=== PATIENT | male | born 1940 | race Caucasian/White ===

== ENCOUNTER 2016-06-13 23:06 | Emergency (ER) | payer OTHER ==
[~2016-06-13] VITALS: Ht 172.7 cm; Wt 80.0 kg
[~2016-06-13 23:06] MED LIST: AMLO10TA2 PO; ATOR40TA16 PO; BUSP5TAB PO; CALTCHW CHEW; CHRO1CAP3; FERR1TAB36 PO; FISHCAP4 PO; FURO1TAB60 PO; GABA1TAB; METF500T PO; OMEP20TA PO; PYRI1TAB5; TEST-55; VENTAER INH; VITA100021 SL; XARE20TA PO; ZINC10LO4; [UNRECOGNIZED DRUG - CODE]
[2016-06-13 23:09] VITALS: BP 129/78; PULSE 78; RESP 16; TEMP 99; O2SAT 93
[2016-06-14 00:46] VITALS: BP 119/84; PULSE 84; RESP 16; TEMP 99.4; O2SAT 93
[2016-06-14] MEDS ORDERED: VENTAER INH (00:59)
[2016-06-14] MEDS ORDERED: CLON1TAB PO (00:59)
[2016-06-14] MEDS ORDERED: FLUT1SPR5 EACH NARE (00:59)
[2016-06-14] MEDS ORDERED: DONE1TAB90 PO (00:59)
[2016-06-14] MEDS ORDERED: RAMI1.252 PO (00:59)
[2016-06-14] MEDS ORDERED: TAMS0.4C4 PO (00:59)
[2016-06-14] MEDS ORDERED: TRAM50TA PO (00:59)
[2016-06-14] MEDS ORDERED: ACETAMINOPHEN 325 MG TAB PO ONE (01:15)
[2016-06-14] MEDS ORDERED: SODIUM CHLORIDE 0.9% FLUSH 5 ML FLUSH IVF PRN (01:15)
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
[2016-06-14 01:45] VITALS: BP 123/72; PULSE 83; RESP 16; O2SAT 95
[2016-06-14 02:08] LABS: AUTOMATED NEUTROPHIL # 4.6 TH/MM3 (1.8-7.7); BASOPHIL % 0.7 % (0.0-2.0); EOSINOPHIL # 0.1 TH/MM3 (0-0.4); EOSINOPHIL % 1.5 % (0.0-4.0); HEMATOCRIT 42.9 % (39.0-51.0); HEMO FLAGS DIFF FINAL; LYMPH % 16.3 % (9.0-44.0); LYMPHOCYTE # 1.1 TH/MM3 (1.0-4.8); MEAN CELL VOLUME 93.1 FL (80.0-100.0); MEAN CORPUSCULAR HEMOGLOBIN 31.4 PG (27.0-34.0); MEAN CORPUSCULAR HGB CONC 33.7 % (32.0-36.0); MONO % 10.1 % (0.0-8.0); NEUT % 71.4 % (16.0-70.0); PLATELET COUNT 152 TH/MM3 (150-450); RED BLOOD COUNT 4.61 MIL/MM3 (4.50-5.90); RED CELL DISTRIBUTION WIDTH 13.8 % (11.6-17.2); WHITE BLOOD COUNT 6.5 TH/MM3 (4.0-11.0)
--- NOTE | 2016-06-14 02:21 | RADRPT ---
EXAM DATE/TIME: 06/14/2016 01:50 [facility] COMPARISON: No previous studies available for comparison. INDICATIONS : Cough for four days. MEDICAL HISTORY : Chronic obstructive pulmonary disease. Hypertension Diabetes mellitus type II. SURGICAL HISTORY : None. ENCOUNTER: Initial ACUITY: 4 - 6 days PAIN SCORE: 0/10 LOCATION: Bilateral chest FINDINGS: The cardiac silhouette is enlarged in transverse diameter. The lungs are free of acute parenchymal op acity. No effusions are identified. The aortic knob is prominent with tortuosity of the descending th oracic aorta. CONCLUSION: 1. Cardiomegaly. No acute pulmonary disease. Christoph Castillo MD on June 14, 2016 at 2:20 Board Certified Radiologist. This report was verified electronically.
[2016-06-14 02:30] LABS: BICARBONATE 28.4 MEQ/L (21.0-32.0); POTASSIUM 4.2 MEQ/L (3.5-5.1)
[2016-06-14] MEDS: RESP: ALBUTEROL 2.5 MG/IPRATROPIUM 0.5 MG NEB (SCH) INH (03:03)
[2016-06-14 03:07] VITALS: O2SAT 94
[2016-06-14] MEDS ORDERED: SODIUM CHLOR 0.9% 1000 ML INJ 1,000 ML IV ONE (04:00)
[2016-06-14 04:39] VITALS: BP_SYST 103; BP_SYST 104; BP_SYST 120; BP_DIAS 61; BP_DIAS 68; BP_DIAS 79; RESP 16
[2016-08-11] MEDS ORDERED: WARF-23 PO (10:45)
== END 2016-06-14 04:57 | disposition home or self-care (01) ==
LOC: NEPC 23:06
DX: J06.9 Acute upper respiratory infection, unspecified (principal); Z72.0 Tobacco use
CPT/HCPCS: 71010; 80048; 83605; 85025; 87040; 87804; 94640; 94664; 99284; J7030

== ENCOUNTER → 2016-06-24 | Day surgery (SDC) | payer OTHER ==
[~2016-06-24] MED LIST changes: +CLON1TAB PO; +DONE1TAB90 PO; +FLUT1SPR5 EACH NARE; +PROPOFOL 200 MG/20 ML AMP IV ONE; +RAMI1.252 PO; +SODIUM CHLORIDE 0.9% INJ 10 ML ONE; +TAMS0.4C4 PO; +TRAM50TA PO; +TRIAMCINOLONE ACETONIDE 40 MG/ML VIAL ONE; +WARF-23 PO; -XARE20TA PO
== END | disposition home or self-care (01) ==
LOC: ESDC 10:29
PROVIDERS: ATTEND Anesthesiology Pain Medicine
DX: M47.817 Spondylosis without myelopathy or radiculopathy, lumbosacral region (principal)
CPT/HCPCS: 62323; J3301; 77003

== ENCOUNTER 2017-07-15 17:15 | Observation (INO) | payer OTHER ==
[~2017-07-15] VITALS: Ht 172.7 cm; Wt 78.9 kg
[~2017-07-15 17:15] MED LIST changes: -DONE1TAB90 PO; +DONE5TAB8 PO; -GABA1TAB; +GABA1TAB PO; -OMEP20TA PO; +OMEP20TA93 PO; -PROPOFOL 200 MG/20 ML AMP IV ONE; -PYRI1TAB5; -SODIUM CHLORIDE 0.9% INJ 10 ML ONE; -TRIAMCINOLONE ACETONIDE 40 MG/ML VIAL ONE; +VITA100T10; -ZINC10LO4
[2017-07-15 18:03] VITALS: BP 112/66; PULSE 88; RESP 16; TEMP 97.7; O2SAT 89; O2SAT 98
[2017-07-15] MEDS ORDERED: SODIUM CHLORID 0.9% 500 ML INJ 500 ML IV ONE ×2 (18:15→20:15)
[2017-07-15] MEDS ORDERED: SODIUM CHLORIDE 0.9% FLUSH 10 ML FLUSH IVF PRN (18:15)
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
--- NOTE | 2017-07-15 19:22 | PD ---
Physical Exam Date Seen by Provider: Jul 15, 2017 Time Seen by Provider: 19:21 Narrative Accepted in transfer of care from Dr. Lucas General: Well-developed well-nourished elderly male in no acute distress or respiratory distress sitting at edge of stretcher with legs dangling with nurse at bedside voicing no concerns or complaints GCS 15 systolic blood pressure 99 mmHg Data Data Last Documented VS Vital Signs Date Time Temp Pulse Resp B/P (MAP) Pulse Ox O2 Delivery O2 Flow Rate FiO2 07/15/17 19:24 95 Room Air 07/15/17 19:00 18 07/15/17 18:03 97.7 88 112/66 (81) Orders Orders Electrocardiogram (07/15/17 18:15) B-Type Natriuretic Peptide (07/15/17 18:15) Ckmb (Isoenzyme) Profile (07/15/17 18:15) Complete Blood Count With Diff (07/15/17 18:15) Comprehensive Metabolic Panel (07/15/17 18:15) Magnesium (Mg) (07/15/17 18:15) Prothrombin Time / Inr (Pt) (07/15/17 18:15) Act Partial Throm Time (Ptt) (07/15/17 18:15) Troponin I (07/15/17 18:15) Lipase (07/15/17 18:15) Ecg Monitoring (07/15/17 18:15) Iv Access Insert/Monitor (07/15/17 18:15) Oximetry (07/15/17 18:15) Oxygen Administration (07/15/17 18:15) Sodium Chloride 0.9% Flush (Ns Flush) (07/15/17 18:15) Chest, Single Ap (07/15/17 ) Sodium Chlorid 0.9% 500 Ml Inj (Ns 500 M (07/15/17 18:15) Urinalysis - C+S If Indicated (07/15/17 19:16) Sodium Chlorid 0.9% 500 Ml Inj (Ns 500 M (07/15/17 20:15) Admit Order (Ed Use Only) (07/15/17 ) Dye Reel Operator Helper / Telemetry KUSHAL.Q8H (07/15/17 20:49) Activity Oob With Assistance (07/15/17 20:49) Notify Dr: Other (07/15/17 20:49) Place In Observation (3/21/18 ) Vital Signs (Adult) Q4H (07/15/17 20:49) Activity Oob With Assistance (07/15/17 20:49) Dye Reel Operator Helper / Telemetry .CONTINUOUS (07/15/17 20:49) Diet 1800 [place] Cons Carb (07/16/17 Breakfast) Sodium Chlor 0.9% 1000 Ml Inj (Ns 1000 M (07/15/17 21:00) Sodium Chloride 0.9% Flush (Ns Flush) (07/15/17 21:00) Sodium Chloride 0.9% Flush (Ns Flush) (07/15/17 21:00) Basic Metabolic Panel (Bmp) (07/16/17 06:00) Complete Blood Count With Diff (07/16/17 06:00) Pt Request For Service (07/15/17 20:49) Case Management Consult (07/15/17 20:49) Naloxone Inj (Narcan Inj) (07/15/17 21:00) Labs Laboratory Tests Test 07/15/17 19:13 07/15/17 19:40 White Blood Count 8.4 TH/MM3 Red Blood Count 4.34 MIL/MM3 Hemoglobin 13.8 GM/DL Hematocrit 41.2 % Mean Corpuscular Volume 94.7 FL Mean Corpuscular Hemoglobin 31.7 PG Mean Corpuscular Hemoglobin Concent 33.5 % Red Cell Distribution Width 13.0 % Platelet Count 198 TH/MM3 Mean Platelet Volume 7.6 FL Neutrophils (%) (Auto) 67.2 % Lymphocytes (%) (Auto) 23.1 % Monocytes (%) (Auto) 6.3 % Eosinophils (%) (Auto) 1.6 % Basophils (%) (Auto) 1.8 % Neutrophils # (Auto) 5.7 TH/MM3 Lymphocytes # (Auto) 1.9 TH/MM3 Monocytes # (Auto) 0.5 TH/MM3 Eosinophils # (Auto) 0.1 TH/MM3 Basophils # (Auto) 0.2 TH/MM3 CBC Comment DIFF FINAL Differential Comment Prothrombin Time 25.1 SEC Prothromb Time International Ratio 2.5 RATIO Activated Partial Thromboplast Time 32.9 SEC Blood Urea Nitrogen 28 MG/DL Creatinine 1.60 MG/DL Random Glucose 98 MG/DL Total Protein 6.5 GM/DL Albumin 3.2 GM/DL Calcium Level 8.2 MG/DL Magnesium Level 2.3 MG/DL Alkaline Phosphatase 61 U/L Aspartate Amino Transf (AST/SGOT) 9 U/L Alanine Aminotransferase (ALT/SGPT) 15 U/L Total Bilirubin 0.4 MG/DL Sodium Level 138 MEQ/L Potassium Level 4.2 MEQ/L Chloride Level 102 MEQ/L Carbon Dioxide Level 28.6 MEQ/L Anion Gap 7 MEQ/L Estimat Glomerular Filtration Rate 42 ML/MIN Total Creatine Kinase 76 U/L Troponin I LESS THAN 0.02 NG/ML B-Type Natriuretic Peptide 114 PG/ML Lipase 110 U/L Urine Color YELLOW Urine Turbidity CLEAR Urine pH 5.0 Urine Specific [place] GREATER/EQUAL 1.030 Urine Protein NEG mg/dL Urine Glucose (UA) NEG mg/dL Urine Ketones NEG mg/dL Urine Occult Blood TRACE Urine Nitrite NEG Urine Bilirubin NEG Urine Urobilinogen 0.2 MG/DL Urine Leukocyte Esterase NEG Urine RBC 0-3 /hpf Urine WBC 0-2 /hpf Urine Squamous Epithelial Cells 0-5 /hpf Urine Renal Epithelial Cells 0-5 /hpf Microscopic Urinalysis Comment CULT NOT INDICATED MDM Medical Record Reviewed: Yes Supervised Visit with NIKHIL: No Interpretation(s) EKG: Atrial fibrillation with controlled ventricular rate of [address] elevation or injury pattern change noted left axis deviation Last Impressions Chest X-Ray 07/15/17 0000 Signed Impressions: Service Date/Time: Saturday, July 15, 2017 18:37 - CONCLUSION: 1. Cardiomegaly. Minimal basal atelectasis or scarring. No effusion or pneumothorax. Jagdish Kang MD CBC & BMP Diagram 07/15/17 19:13 Total Protein 6.5, Albumin 3.2 L, Calcium Level 8.2 L, Magnesium Level 2.3, Alkaline Phosphatase 61, Aspartate Amino Transf (AST/SGOT) 9 L, Alanine Aminotransferase (ALT/SGPT) 15, Total Bilirubin 0.4 Vital Signs Date Time Temp Pulse Resp B/P (MAP) Pulse Ox O2 Delivery O2 Flow Rate FiO2 07/15/17 19:24 95 Room Air 07/15/17 19:24 93 Room Air 07/15/17 19:00 18 95 Room Air 07/15/17 18:03 97.7 88 16 112/66 (35) 98 Differential Diagnosis Accepted in transfer of care from Dr. Lucas; please refer to his dictation Narrative Course Accepted in transfer of care from Dr. Lucas for follow up of labs and disposition Patient with elevated specific gravity on urinalysis EKG is atrial fibrillation with controlled ventricular rate actually slow ventricular rate of 55 lab values are grossly within normal range otherwise; patient's primary care 30 told him to discontinue his antihypertensive medications; patient's case has been discussed with on-call medicine physician Dr Cuello with plan for observation admission. Patient administering slow boluses of normal saline has received a 500 cc bolus and an additional 500 cc bolus blood pressures running 97 systolic. Cardiac enzymes are not elevated. Patient is aware of plan for observation admission and is agreeable to this. Physician Communication Physician Communication discussed with Dr Cuello --OBS Diagnosis Primary Impression: Generalized weakness Additional Impressions: Hypotension Qualified Codes: I95.9 - Hypotension, unspecified Hypotension due to medication Admitting Information Admitting Physician Requests: Observation Apple Boogie MD Jul 15, 2017 19:21
[2017-07-15 19:24] VITALS: O2SAT 95
[2017-07-15 19:24] LABS: AUTOMATED NEUTROPHIL # 5.7 TH/MM3 (1.8-7.7); BASOPHIL # 0.2 TH/MM3 (0-0.2); BASOPHIL % 1.8 % (0.0-2.0); EOSINOPHIL # 0.1 TH/MM3 (0-0.4); EOSINOPHIL % 1.6 % (0.0-4.0); HEMATOCRIT 41.2 % (39.0-51.0); HEMOGLOBIN 13.8 GM/DL (13.0-17.0); LYMPH % 23.1 % (9.0-44.0); LYMPHOCYTE # 1.9 TH/MM3 (1.0-4.8); MEAN CELL VOLUME 94.7 FL (80.0-100.0); MEAN CORPUSCULAR HEMOGLOBIN 31.7 PG (27.0-34.0); MEAN CORPUSCULAR HGB CONC 33.5 % (32.0-36.0); MEAN PLATELET VOLUME 7.6 FL (7.0-11.0); MONO % 6.3 % (0.0-8.0); MONOCYTE # 0.5 TH/MM3 (0-0.9); NEUT % 67.2 % (16.0-70.0); PLATELET COUNT 198 TH/MM3 (150-450); RED BLOOD COUNT 4.34 MIL/MM3 (4.50-5.90); WHITE BLOOD COUNT 8.4 TH/MM3 (4.0-11.0)
[2017-07-15 19:32] LABS: CHLORIDE 102 MEQ/L (98-107); SODIUM (NA) 138 MEQ/L (136-145)
[2017-07-15 19:35] LABS: CALCIUM 8.2 MG/DL (8.5-10.1)
[2017-07-15 19:36] LABS: ALBUMIN 3.2 GM/DL (3.4-5.0); BICARBONATE 28.6 MEQ/L (21.0-32.0); BLOOD UREA NITROGEN 28 MG/DL (7-18); GLUCOSE,RANDOM 98 MG/DL (74-106); MAGNESIUM 2.3 MG/DL (1.5-2.5)
[2017-07-15 19:37] LABS: INTERNATIONAL NORMALIZED RATIO 2.5 RATIO; PROTHROMBIN TIME - PATIENT 25.1 SEC (9.8-11.6)
[2017-07-15] MEDS ORDERED: TRAZ100T10 PO (19:37)
[2017-07-15 19:39] LABS: ALT (GPT) 15 U/L (12-78); AST (GOT) 9 U/L (15-37); GLOMERULAR FILTRATION RATE 42 ML/MIN (>89)
[2017-07-15 19:40] LABS: TOTAL BILIRUBIN ADULT 0.4 MG/DL (0.2-1.0); TOTAL PROTEIN 6.5 GM/DL (6.4-8.2)
[2017-07-15 19:42] LABS: ALKALINE PHOSPHATASE 61 U/L (45-117)
[2017-07-15 19:44] LABS: TROPONIN I LESS THAN 0.02 NG/ML (0.02-0.05)
--- NOTE | 2017-07-15 19:46 | RADRPT ---
EXAM DATE/TIME: 07/15/2017 18:37 [facility] COMPARISON: No previous studies available for comparison. INDICATIONS : Weakness, shortness of breath for 24 hours MEDICAL HISTORY : Chronic obstructive pulmonary disease. Hypertension Diabetes mellitus type II SURGICAL HISTORY : None. ENCOUNTER: Initial ACUITY: 1 day PAIN SCORE: 0/10 LOCATION: Bilateral chest FINDINGS: A single view of the chest demonstrates minimal basilar atelectasis or scarring. No effusion. No pneu mothorax. Heart size enlarged. CONCLUSION: 1. Cardiomegaly. Minimal basal atelectasis or scarring. No effusion or pneumothorax. Jagdish Kang MD on July 15, 2017 at 19:43 Board Certified Radiologist. This report was verified electronically.
[2017-07-15 19:50] LABS: BILIRUBIN, URINE NEG (NEG); BLOOD, URINE TRACE (NEG); GLUCOSE,URINE NEG (NEG); KETONE, URINE NEG (NEG); NITRITE,URINE NEG (NEG); URINE COLOR YELLOW (YELLW/STRAW); URINE LEUKOCYTE ESTERASE NEG (NEG)
[2017-07-15 19:55] LABS: RBC, URINE 0-3 /hpf (0-3); RENAL EPITHELIAL CELLS 0-5 /hpf; SQUAMOUS EPITHELIAL CELL URINE 0-5 /hpf (0-5); WBC, URINE 0-2 /hpf (0-5)
[2017-07-15] MEDS ORDERED: SODIUM CHLORIDE 0.9% FLUSH 10 ML FLUSH IV FLUSH PRN (21:00)
[2017-07-15] MEDS: INSULIN ASPART SUPPLEMENTAL SCALE SQ SCH (21:00)
[2017-07-15] MEDS ORDERED: GLUCAGON 1 MG/ML VIAL OTHER PRN (21:00)
[2017-07-15] MEDS ORDERED: NALOXONE HCL 0.4 MG/ML AMP IV PUSH PRN (21:00)
[2017-07-15] MEDS ORDERED: DEXTROSE 50% IN WATER 50 ML VIAL(D50) IV PUSH PRN (21:00)
[2017-07-15] MEDS: SODIUM CHLOR 0.9% 1000 ML INJ 1,000 ML IV SCH (21:37)
[2017-07-15] MEDS: SODIUM CHLORIDE 0.9% FLUSH 10 ML FLUSH IV FLUSH SCH (21:38)
--- NOTE | 2017-07-15 21:43 | EKG ---
Date Performed: 07/15/2017 Time Performed: 18:34:29 PTAGE: 76 years EKG: ATRIAL FIBRILLATION WITH SLOW VENTRICULAR RESPONSE MARKED LEFT AXIS DEVIATION NONSPECIFIC T -WAVE ABNORMALITY ABNORMAL ECG Cannot compare EKGs due to prior artifact. PREVIOUS TRACING : 01/03/2015 08.32 DOCTOR: Boyd Freitas Interpretating Date/Time 07/15/2017 21:42:17
[2017-07-15 21:44] VITALS: BP 92/64; PULSE 64; RESP 18
[2017-07-15 23:22] VITALS: BP 97/60; PULSE 71; RESP 16; O2SAT 95
[2017-07-16] VITALS (14 sets, daily range): BP systolic 89–140; BP diastolic 60–88; PULSE 58–98; RESP 16–33; TEMP 97.6–98.2; O2SAT 89–98
[2017-07-16 05:19] LABS: AUTOMATED NEUTROPHIL # 4.5 TH/MM3 (1.8-7.7); BASOPHIL % 0.4 % (0.0-2.0); EOSINOPHIL # 0.2 TH/MM3 (0-0.4); EOSINOPHIL % 2.5 % (0.0-4.0); HEMATOCRIT 39.5 % (39.0-51.0); HEMOGLOBIN 12.9 GM/DL (13.0-17.0); LYMPH % 26.5 % (9.0-44.0); LYMPHOCYTE # 1.8 TH/MM3 (1.0-4.8); MEAN CELL VOLUME 94.8 FL (80.0-100.0); MEAN CORPUSCULAR HGB CONC 32.7 % (32.0-36.0); MEAN PLATELET VOLUME 7.5 FL (7.0-11.0); MONO % 6.2 % (0.0-8.0); MONOCYTE # 0.4 TH/MM3 (0-0.9); NEUT % 64.4 % (16.0-70.0); PLATELET COUNT 177 TH/MM3 (150-450); RED BLOOD COUNT 4.17 MIL/MM3 (4.50-5.90); RED CELL DISTRIBUTION WIDTH 12.9 % (11.6-17.2); WHITE BLOOD COUNT 6.9 TH/MM3 (4.0-11.0)
[2017-07-16 05:36] LABS: CALCIUM 7.7 MG/DL (8.5-10.1)
[2017-07-16 05:37] LABS: BICARBONATE 26.4 MEQ/L (21.0-32.0)
[2017-07-16 05:40] LABS: CREATININE 1.2 MG/DL (0.60-1.30)
[2017-07-16] MEDS: SODIUM CHLOR 0.9% 1000 ML INJ 1,000 ML IV SCH ×2 (06:13→16:42)
[2017-07-16] MEDS: INSULIN ASPART SUPPLEMENTAL SCALE SQ SCH ×4 (08:00→21:00)
[2017-07-16] MEDS: SODIUM CHLORIDE 0.9% FLUSH 10 ML FLUSH IV FLUSH SCH ×2 (08:23→21:00)
[2017-07-16] MEDS ORDERED: GABA300C5 PO (14:39)
[2017-07-16] MEDS ORDERED: WARFARIN SOD 5 MG TAB PO SCH (16:00)
[2017-07-16] MEDS ORDERED: ALBUTEROL SULFATE 90 MCG/ACT HFA 8 GM INHALER INH PRN ×2 (16:00)
[2017-07-16] MEDS ORDERED: clonazePAM 1 MG TAB PO PRN (16:00)
[2017-07-16] MEDS ORDERED: traMADol HCL 50 MG TAB PO PRN (16:00)
--- NOTE | 2017-07-16 16:04 | HHI.HP ---
[facility] Fidel Campbell MD Admission Diagnosis generalized weakness; hypotension Diagnoses: Chief Complaint: generalized weakness Travel History International Travel<30 Days: No Contact w/Intl Traveler <30 Da: No Traveled to Known Affected Are: No History of Present Illness 76-year-old male with PMH of HTN, Afib on coumadin, BPH, neuropathy, came to the ED for furhter evaluation, He complains of weakness for the past several days, he also felt dizzy. Low blood pressure also is reported. He saw his primary care provider today who discontinued his antihypertensives and advised him to arrive to the ER for evaluation. He denies abdominal pain chest pain shortness of breath fever chills nausea vomiting. He does report difficulty getting in and out of his car due to leg weakness. He reports falls over the past couple weeks due to leg weakness. No head trauma or LOC. He did received bolus of IVF in the ED and he says she feels improved. Review of Systems Except as stated in HPI: all other systems reviewed are Neg Past Family Social History Past Medical History h/o bladder ca with surgery, BPH, HTN, HLD Past Surgical History bladder surgery x2 in 2000 Prostatectomy Hemorrhoidal surgery Reported Medications Last Impressions Chest X-Ray 07/15/17 0000 Signed Impressions: Service Date/Time: Saturday, July 15, 2017 18:37 - CONCLUSION: 1. Cardiomegaly. Minimal basal atelectasis or scarring. No effusion or pneumothorax. Jagdish Kang MD Allergies: Coded Allergies: monosodium glutamate (Verified Allergy, Severe, TROUBLE BREATHING, CHEST PAIN, 04/17/17) Family History Mom [place] at 86 Father 74 of heart problems Social History 2 ppd x 54 years quit 2 month ago Occ EtOH No illicit drug use Physical Exam Vital Signs Vital Signs Date Time Temp Pulse Resp B/P (MAP) Pulse Ox O2 Delivery O2 Flow Rate FiO2 07/16/17 12:00 98.1 74 18 96/60 (72) 96 07/16/17 09:11 96 Nasal Cannula 2.00 07/16/17 09:00 84 19 96 07/16/17 08:52 96 Nasal Cannula 2.00 07/16/17 08:00 97.8 82 33 109/75 (86) 89 07/16/17 08:00 62 07/16/17 05:00 103/77 (86) 07/16/17 04:00 97.6 59 16 89/61 (70) 95 07/16/17 02:00 59 07/16/17 01:15 98.0 58 16 111/69 (83) 92 07/16/17 01:11 07/15/17 23:22 71 16 97/60 (72) 95 Room Air 07/15/17 21:44 64 18 92/64 (73) 07/15/17 19:24 95 Room Air 07/15/17 19:24 93 Room Air 07/15/17 19:00 18 95 Room Air 07/15/17 18:03 97.7 88 16 112/66 (81) 98 Physical Exam GENERAL: This is a well-nourished, well-developed patient, in no apparent distress. SKIN: No rashes, ecchymoses or lesions. Cool and dry. HEAD: Atraumatic. Normocephalic. No temporal or scalp tenderness. EYES: Pupils equal round and reactive. Extraocular motions intact. No scleral icterus. No injection or drainage. ENT: Nose without bleeding, purulent drainage or septal hematoma. Throat without erythema, tonsillar hypertrophy or exudate. Uvula midline. Airway patent. NECK: Trachea midline. No JVD or lymphadenopathy. Supple, nontender, no meningeal signs. CARDIOVASCULAR: Regular rate and rhythm without murmurs, gallops, or rubs. RESPIRATORY: Clear to auscultation. Breath sounds equal bilaterally. No wheezes , rales, or rhonchi. GASTROINTESTINAL: Abdomen soft, non-tender, nondistended. No hepato-splenomegaly , or palpable masses. No guarding. MUSCULOSKELETAL: Extremities without clubbing, cyanosis, or edema. No joint tenderness, effusion, or edema noted. No calf tenderness. Negative Homans sign bilaterally. NEUROLOGICAL: Awake and alert. Cranial nerves II through XII intact. Motor and sensory grossly within normal limits. Five out of 5 muscle strength in all muscle groups. Normal speech. Laboratory Laboratory Tests Test 07/15/17 19:13 07/15/17 19:40 07/16/17 05:07 White Blood Count 8.4 6.9 Red Blood Count 4.34 4.17 Hemoglobin 13.8 12.9 Hematocrit 41.2 39.5 Mean Corpuscular Volume 94.7 94.8 Mean Corpuscular Hemoglobin 31.7 31.0 Mean Corpuscular Hemoglobin Concent 33.5 32.7 Red Cell Distribution Width 13.0 12.9 Platelet Count 198 177 Mean Platelet Volume 7.6 7.5 Neutrophils (%) (Auto) 67.2 64.4 Lymphocytes (%) (Auto) 23.1 26.5 Monocytes (%) (Auto) 6.3 6.2 Eosinophils (%) (Auto) 1.6 2.5 Basophils (%) (Auto) 1.8 0.4 Neutrophils # (Auto) 5.7 4.5 Lymphocytes # (Auto) 1.9 1.8 Monocytes # (Auto) 0.5 0.4 Eosinophils # (Auto) 0.1 0.2 Basophils # (Auto) 0.2 0.0 CBC Comment DIFF FINAL DIFF FINAL Differential Comment Prothrombin Time 25.1 Prothromb Time International Ratio 2.5 Activated Partial Thromboplast Time 32.9 Blood Urea Nitrogen 28 23 Creatinine 1.60 1.20 Random Glucose 98 92 Total Protein 6.5 Albumin 3.2 Calcium Level 8.2 7.7 Magnesium Level 2.3 Alkaline Phosphatase 61 Aspartate Amino Transf (AST/SGOT) 9 Alanine Aminotransferase (ALT/SGPT) 15 Total Bilirubin 0.4 Sodium Level 138 142 Potassium Level 4.2 4.0 Chloride Level 102 108 Carbon Dioxide Level 28.6 26.4 Anion Gap 7 8 Estimat Glomerular Filtration Rate 42 59 Total Creatine Kinase 76 Troponin I LESS THAN 0.02 B-Type Natriuretic Peptide 114 Lipase 110 Urine Color YELLOW Urine Turbidity CLEAR Urine pH 5.0 Urine Specific [place] GREATER/EQUAL 1.030 Urine Protein NEG Urine Glucose (UA) NEG Urine Ketones NEG Urine Occult Blood TRACE Urine Nitrite NEG Urine Bilirubin NEG Urine Urobilinogen 0.2 Urine Leukocyte Esterase NEG Urine RBC 0-3 Urine WBC 0-2 Urine Squamous Epithelial Cells 0-5 Urine Renal Epithelial Cells 0-5 Microscopic Urinalysis Comment CULT NOT INDICATED Result Diagram: 07/16/17 0507 07/16/17 0507 Imaging Last Impressions Chest X-Ray 07/15/17 0000 Signed Impressions: Service Date/Time: Saturday, July 15, 2017 18:37 - CONCLUSION: 1. Cardiomegaly. Minimal basal atelectasis or scarring. No effusion or pneumothorax. Jagdish Kang MD Caprini VTE Risk Assessment Caprini VTE Risk Assessment: Mod/High Risk (score >= 2) Caprini Risk Assessment Model Point Value = 1 Point Value = 2 Point Value = 3 Point Value = 5 Age 41-60 Minor surgery BMI > 25 kg/m2 Swollen legs Varicose veins or History of unexplained or recurrent spontaneous Oral contraceptives or hormone replacement Sepsis (< 1 month) Serious lung disease, including pneumonia (< 1 month) Abnormal pulmonary function Acute myocardial infarction Congestive heart failure (< 1 month) History of inflammatory bowel disease Medical patient at bed rest Age 61-74 Arthroscopic surgery Major open surgery (> 45 min) Laparoscopic surgery (> 45 min) Malignancy Confined to bed (> 72 hours) Immobilizing plaster cast Central venous access Age >= 75 History of VTE Family history of VTE Factor V Leiden Prothrombin [id number] Lupus anticoagulant Anticardiolipin antibodies Elevated serum homocysteine Heparin-induced thrombocytopenia Other congenital or acquired thrombophilia Stroke (< 1 month) Elective arthroplasty Hip, pelvis, or leg fracture Acute spinal cord injury (< 1 month) Prophylaxis Regimen Total Risk Factor Score Risk Level Prophylaxis Regimen 0-1 Low Early ambulation 2 Moderate Order ONE of the following: *Sequential Compression Device (SCD) *Heparin 5000 units SQ BID 3-4 Higher Order ONE of the following medications: *Heparin 5000 units SQ TID *Enoxaparin/Lovenox 40 mg SQ daily (WT < 150 kg, CrCl > 30 mL/min) *Enoxaparin/Lovenox 30 mg SQ daily (WT < 150 kg, CrCl > 10-29 mL/min) *Enoxaparin/Lovenox 30 mg SQ BID (WT < 150 kg, CrCl > 30 mL/min) AND/OR *Sequential Compression Device (SCD) 5 or more Highest Order ONE of the following medications: *Heparin 5000 units SQ TID (Preferred with Epidurals) *Enoxaparin/Lovenox 40 mg SQ daily (WT < 150 kg, CrCl > 30 mL/min) *Enoxaparin/Lovenox 30 mg SQ daily (WT < 150 kg, CrCl > 10-29 mL/min) *Enoxaparin/Lovenox 30 mg SQ BID (WT < 150 kg, CrCl > 30 mL/min) AND *Sequential Compression Device (SCD) Assessment and Plan Assessment and Plan Generalized weakness Hypertension however noted hypotensive on admission Afib rate controlled on anticoagulation with coumadin , INR therapeutic, monitor HLD Monitor on telemetry On IVF Restart home meds as appropriate Hold BP meds if SBP< 110 POss DC home tomorrow if improves Yen Bernal MD Jul 16, 2017 16:04
[2017-07-16] MEDS ORDERED: WARF-22 PO (16:49)
[2017-07-16] MEDS ORDERED: FLUTICASONE PROPIONATE 50 MCG/ACT 16 GM NASAL SPRAY EACH NARE SCH (21:00)
[2017-07-16] MEDS ORDERED: GABAPENTIN 300 MG CAP PO SCH (21:00)
[2017-07-16] MEDS ORDERED: traZODone HCL 100 MG TAB PO SCH (21:00)
[2017-07-16] MEDS ORDERED: ATORVASTATIN 40 MG TAB PO SCH (21:00)
[2017-07-16] MEDS ORDERED: TAMSULOSIN HCL 0.4 MG CAP PO SCH (21:00)
[2017-07-17] VITALS: BP 108/64; PULSE 120; RESP 16; TEMP 98.4; O2SAT 96
[2017-07-17] MEDS: SODIUM CHLOR 0.9% 1000 ML INJ 1,000 ML IV SCH ×2 (02:54→05:25)
[2017-07-17 04:00] VITALS: BP 117/75; PULSE 70; RESP 14; TEMP 98.4; O2SAT 95
[2017-07-17 05:25] LABS: INTERNATIONAL NORMALIZED RATIO 1.7 RATIO; PROTHROMBIN TIME - PATIENT 16.7 SEC (9.8-11.6)
[2017-07-17 08:00] VITALS: BP 122/77; PULSE 70; PULSE 90; RESP 20; TEMP 96.8; O2SAT 95
[2017-07-17] MEDS ORDERED: GABAPENTIN 300 MG CAP PO SCH (09:00)
[2017-07-17] MEDS ORDERED: DONEPEZIL HCL 5 MG TAB PO SCH (09:00)
[2017-07-17] MEDS ORDERED: RAMIPRIL 1.25 MG CAP PO SCH (09:00)
[2017-07-17] MEDS ORDERED: PANTOPRAZOLE SOD 20 MG DELAYED RELEASE TAB PO SCH (09:00)
[2017-07-17] MEDS ORDERED: NON-FORMULARY DRUG (Fish Oil-Cholecalciferol (Fish Oil + D3) 1 CAP) PO SCH (09:00)
[2017-07-17] MEDS: SODIUM CHLORIDE 0.9% FLUSH 10 ML FLUSH IV FLUSH SCH (10:53)
[2017-07-17 11:23] LABS: CALCIUM 8.3 MG/DL (8.5-10.1)
[2017-07-17 11:24] LABS: BICARBONATE 30.3 MEQ/L (21.0-32.0)
[2017-07-17 11:37] LABS: CREATININE 1.1 MG/DL (0.60-1.30)
[2017-07-17 12:00] VITALS: BP 109/67; PULSE 76; RESP 20; TEMP 98; O2SAT 95
[2017-07-17] MEDS: INSULIN ASPART SUPPLEMENTAL SCALE SQ SCH (12:07)
--- NOTE | 2017-07-17 12:21 | HHI.DS ---
Discharge Summary Admission Date Jul 15, 2017 at 20:50 Discharge Date: Jul 17, 2017 Admitting Diagnosis generalized weakness; hypotension (1) Hypotension due to medication ICD Code: I95.2 - Hypotension due to drugs Status: Acute (2) Hypotension ICD Code: I95.9 - Hypotension, unspecified Status: Acute (3) Generalized weakness ICD Code: R53.1 - Weakness Status: Acute (4) Coronary artery disease ICD Code: I25.10 - Coronary artery disease Status: Acute (5) Hypersensitivity ICD Code: T78.40XA - Allergy, unspecified, initial encounter Status: Acute (6) Hypersensitivity ICD Code: T78.40XA - Allergy, unspecified, initial encounter Status: Acute Procedures None Brief History - From Admission 76-year-old male with PMH of HTN, Afib on coumadin, BPH, neuropathy, came to the ED for furhter evaluation, He complains of weakness for the past several days, he also felt dizzy. Low blood pressure also is reported. He saw his primary care provider today who discontinued his antihypertensives and advised him to arrive to the ER for evaluation. He denies abdominal pain chest pain shortness of breath fever chills nausea vomiting. He does report difficulty getting in and out of his car due to leg weakness. He reports falls over the past couple weeks due to leg weakness. No head trauma or LOC. He did received bolus of IVF in the ED and he says she feels improved. CBC/BMP: 07/16/17 0507 07/17/17 1039 Significant Findings Laboratory Tests Test 07/15/17 19:13 07/15/17 19:40 07/16/17 05:07 07/17/17 04:27 Red Blood Count 4.34 MIL/MM3 (4.50-5.90) 4.17 MIL/MM3 (4.50-5.90) Prothrombin Time 25.1 SEC (9.8-11.6) 16.7 SEC (9.8-11.6) Activated Partial Thromboplast Time 32.9 SEC (24.3-30.1) Blood Urea Nitrogen 28 MG/DL (7-18) 23 MG/DL (7-18) Creatinine 1.60 MG/DL (0.60-1.30) Albumin 3.2 GM/DL (3.4-5.0) Calcium Level 8.2 MG/DL (8.5-10.1) 7.7 MG/DL (8.5-10.1) Aspartate Amino Transf (AST/SGOT) 9 U/L (15-37) Estimat Glomerular Filtration Rate 42 ML/MIN (>89) 59 ML/MIN (>89) Troponin I LESS THAN 0.02 NG/ML B-Type Natriuretic Peptide 114 PG/ML (0-100) Hemoglobin 12.9 GM/DL (13.0-17.0) Chloride Level 108 MEQ/L (98-107) Test 07/17/17 10:39 Random Glucose 127 MG/DL (74-106) Calcium Level 8.3 MG/DL (8.5-10.1) Sodium Level 146 MEQ/L (136-145) Chloride Level 109 MEQ/L (98-107) Estimat Glomerular Filtration Rate 65 ML/MIN (>89) Imaging Last Impressions Chest X-Ray 07/15/17 0000 Signed Impressions: Service Date/Time: Saturday, July 15, 2017 18:37 - CONCLUSION: 1. Cardiomegaly. Minimal basal atelectasis or scarring. No effusion or pneumothorax. Jagdish Kang MD PE at Discharge GENERAL: This is a well-nourished, well-developed patient, in no apparent distress. CARDIOVASCULAR: Regular rate and rhythm without murmurs, gallops, or rubs. RESPIRATORY: Clear to auscultation. Breath sounds equal bilaterally. No wheezes , rales, or rhonchi. GASTROINTESTINAL: Abdomen soft, non-tender, nondistended. No hepato-splenomegaly , or palpable masses. No guarding. MUSCULOSKELETAL: Extremities without clubbing, cyanosis, or edema. No joint tenderness, effusion, or edema noted. No calf tenderness. Negative Homans sign bilaterally. NEUROLOGICAL: Awake and alert. Cranial nerves II through XII intact. Motor and sensory grossly within normal limits. Five out of 5 muscle strength in all muscle groups. Normal speech. Pt update on day of discharge Patient in nad. At the marginof the bed. Improved. Discussed with physical therapy patient is PT at home. Patient feels much better today he is able to eat no nausea vomiting or diarrhea or constipation. He was able to ambulate lightheadedness. No weakness in his legs. Says he has a upcoming MRI of the back in 2 days. Feels comfortable to go home. Blood pressure is better controlled. Hospital Course Generalized weakness Hypertension however noted hypotensive on admission Afib rate controlled on anticoagulation with coumadin , INR therapeutic, monitor HLD Monitor on telemetry On IVF Restart home meds as appropriate Hold BP meds if SBP< 110 Patient is ambulating without any problems has a cane at home PT nurses to check . Discharged home with home health in stable condition to follow-up with PCP and consultants as outpatient. Patient has MRI of his back scheduled in 2 days. He is very compliant with medications and also follow-up appointments. Blood pressure is better controlled. Pt Condition on Discharge: Stable Discharge Disposition: Disch w/ Home Health Serv Discharge Time: > 30 minutes Discharge Instructions Follow up Referrals: PCP Follow-up - 2-3 Days Continued Medications: Albuterol 18 GM Inh (Ventolin Hfa 18 GM Inh) 90 Mcg/Act Aer 1 PUFF INH Q4H PRN for SHORTNESS OF BREATH, #1 INHALER 0 Refills Albuterol 18 GM Inh (Ventolin Hfa 18 GM Inh) 90 Mcg/Act Aer 2 PUFF INH Q4-6H PRN for SHORTNESS OF BREATH, #1 INHALER 0 Refills Atorvastatin (Atorvastatin) 40 Mg Tab 40 MG PO HS for Cholesterol Management, #30 TAB 0 Refills Clonazepam (Clonazepam) 1 Mg Tab 1 MG PO TID PRN for ANXIETY, #90 TAB 0 Refills Cyanocobalamin (Vitamin B-12) Unknown Strength Subl Unknown Dose SL DAILY for Nutritional Supplement, TAB.SL 0 Refills Donepezil Hydrochloride (Donepezil Hydrochloride) 5 Mg Tab 1 TAB PO DAILY Fish Oil-Cholecalciferol (Fish Oil + D3) 1,200-1,000 Mg-Unit Cap 1 CAP PO DAILY for Nutritional Supplement, #30 CAP 0 Refills Fluticasone Nasal [place] (Flonase Nasal [place]) 50 Mcg/Act [place] 50 MCG EACH NARE BID for Allergies, #1 BOTTLE 0 Refills Gabapentin (Gabapentin) 300 Mg Cap 300 MG PO HS, #30 CAP 0 Refills Gabapentin ER (Horizant ER) 300 Mg [place] 600 MG PO DAILY Omeprazole (Omeprazole) 20 Mg Tab 20 MG PO DAILY, #30 TAB 0 Refills Pyridoxine (B6 Natural) 100 Mg Tab Ramipril (Ramipril) 1.25 Mg Cap 1.25 MG PO DAILY, #30 CAP 0 Refills Tamsulosin (Tamsulosin) 0.4 Mg Cap 0.4 MG PO HS for Manage Prostate Problems, #30 CAP 0 Refills Tramadol (Tramadol) 50 Mg Tab 50 MG PO Q6H PRN for PAIN, TAB 0 Refills Trazodone (Trazodone) 100 Mg Tablet 100 MG PO HS for Control Depression, #30 TAB 0 Refills Warfarin (Warfarin) 5 Mg Tab 5 MG PO DAILY for Blood Clot Prevention, #30 TAB 0 Refills Warfarin (Warfarin) 10 Mg Tab 10 MG PO THURSDAY for Blood Clot Prevention, #30 TAB 0 Refills Yen Bernal MD Jul 17, 2017 12:21
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
[2017-07-17] MEDS ORDERED: WARFARIN SOD 2.5 MG TAB PO ONE (16:00)
== END 2017-07-17 16:31 | disposition home or self-care (01) ==
LOC: PHED 17:15 → PHEDA 20:50 → PHICU 07-16 01:05 → PH3A 07-17 08:01
PROVIDERS: ADMIT Hospitalist; ATTEND Hospitalist
DX: I95.2 Hypotension due to drugs (principal); R53.1 Weakness; I25.10 Atherosclerotic heart disease of native coronary artery without angina pectoris; T78.40XA Allergy, unspecified, initial encounter; I10 Essential (primary) hypertension; I48.91 Unspecified atrial fibrillation; E78.5 Hyperlipidemia, unspecified; N40.0 Benign prostatic hyperplasia without lower urinary tract symptoms; Z79.01 Long term (current) use of anticoagulants; Z85.51 Personal history of malignant neoplasm of bladder; Z91.81 History of falling; Z82.49 Family history of ischemic heart disease and other diseases of the circulatory system
CPT/HCPCS: 71045; 80048; 80053; 81001; 82550; 82607; 82948; 83690; 83735; 83880; 84484; 85025; 85610; 85730; 93005; 96360; 96361; 97110; 97116; 97162; 99285; G0378; G8987; G8988; J7030; J7040

== ENCOUNTER → 2017-08-06 | Day surgery (SDC) | payer OTHER ==
[~2017-08-06] VITALS: Ht 172.7 cm; Wt 80.0 kg
[~2017-08-06] MED LIST changes: +*RESP: ALBUTEROL 2.5 MG/3 ML NEB (PRN) PERIprocedural Use ONLY NEB ONE; +ACETAMINOPHEN 1000 MG/100 ML 100 ML IV ONE; +ACETAMINOPHEN/HYDROcodone 325 MG/5 MG TAB PO PRN; -AMLO10TA2 PO; +BUPIVACAINE HCL PF 0.5% 30 ML VIAL ONE; -BUSP5TAB PO; -CALTCHW CHEW; +CEPH-460 PO; +CHLORHEXIDINE GLUCONATE 2 % 1 PACK (2 CLOTHS) TOPICAL PRN; -CHRO1CAP3; +DEXAMETHASONE SOD PHOS 4 MG/ML VIAL IV ONE; +DO NOT ADM ANY ANTICOAGULANT DRUGS PRN; +ENOX40P SQ; +FAMOTIDINE 20 MG/2 ML VIAL ONE; -FERR1TAB36 PO; -FURO1TAB60 PO; +GABA300C5 PO; +HYDR-3288 PO; +LACTATED RINGER'S 1000 ML INJ 1,000 ML IV ONE; +LACTATED RINGER'S 1000 ML IV PRN; +LIDOCAINE HCL 1% PF 5 ML SYRINGE OTHER ONE; +LIDOCAINE HCL 2% 50 ML VIAL ONE; +MEPERIDINE HCL 50 MG/ML VIAL IM PRN; -METF500T PO; +METOPROLOL TARTRATE 25 MG TAB PO PRN; +MIDAZOLAM HCL 2 MG/2 ML VIAL ONE; +PHENYLEPH/NS 1000 MCG/10 ML SYR IV ONE; +POVIDONE IODINE 5% (ANTISEPSIS KIT) 4 APPLICATIONS EACH NARE PRN; +PROPOFOL 200 MG/20 ML AMP IV ONE; +SODIUM CHLORID 0.9% 500 ML IV PRN; -TEST-55; +TRAZ100T10 PO; +TRIAMCINOLONE ACETONIDE 40 MG/ML VIAL ONE; +WARF-22 PO; -[UNRECOGNIZED DRUG - CODE]; +ceFAZolin 1,000 MG/NS 100 ML IV SCH; +ceFAZolin INJ 1,000 MG VIAL IV ONE; +ceFAZolin INJ 1,000 MG VIAL ONE; +ePHEDrine/NS 25 MG/5 ML SYRINGE IV ONE
[2017-08-06 09:42] LABS: AUTOMATED NEUTROPHIL # 3.4 TH/MM3 (1.8-7.7); BASOPHIL % 0.8 % (0.0-2.0); EOSINOPHIL # 0.2 TH/MM3 (0-0.4); EOSINOPHIL % 2.8 % (0.0-4.0); HEMATOCRIT 37.7 % (39.0-51.0); HEMOGLOBIN 13.1 GM/DL (13.0-17.0); LYMPH % 28.5 % (9.0-44.0); LYMPHOCYTE # 1.6 TH/MM3 (1.0-4.8); MEAN CELL VOLUME 93.7 FL (80.0-100.0); MEAN CORPUSCULAR HEMOGLOBIN 32.4 PG (27.0-34.0); MEAN CORPUSCULAR HGB CONC 34.6 % (32.0-36.0); MEAN PLATELET VOLUME 7.3 FL (7.0-11.0); MONO % 8.1 % (0.0-8.0); MONOCYTE # 0.5 TH/MM3 (0-0.9); NEUT % 59.8 % (16.0-70.0); PLATELET COUNT 220 TH/MM3 (150-450); RED BLOOD COUNT 4.03 MIL/MM3 (4.50-5.90); RED CELL DISTRIBUTION WIDTH 13.6 % (11.6-17.2); WHITE BLOOD COUNT 5.7 TH/MM3 (4.0-11.0)
--- NOTE | 2017-08-06 11:56 | MP ---
cc: Vazquez Chau MD DATE OF OPERATION: 08/06/2017 DATE OF PROCEDURE: 08/06/2017 PROCEDURE PERFORMED: 1. Right hand scar revision. 2. Right hand neuroma excision x 2. 3. Right hand deep foreign body removal x 2 and use of image intensifier. SURGEON: Vazquez Chau III, MD DESCRIPTION OF PROCEDURE: The patient was brought to the operating room and placed supine on the operating table. After the correct site and side of surgery were verified by members of each team in the room multiple times including the patient and myself and after adequate preoperative markings, preoperative written consent were verified by everyone, after a preoperative timeout was performed to everyone's satisfaction, and after adequate anesthesia had been achieved, the right upper extremity was prepped and draped in traditional sterile surgical fashion. A 50:50 mixture of 2% lidocaine and 0.5% plain Marcaine was infiltrated in the skin and subcutaneous tissue in the area of the planned wound. The patient and I had gone over preoperatively where the points of maximal tenderness were and these were clearly marked. The limb was exsanguinated using an Fady wrap and a highly placed well-padded axillary tourniquet was inflated to 200 mmHg for approximately 25 minutes. The existing U-shaped scar was then excised in its entirety. The volar flap was then elevated and a lot of hardened fibrous scar tissue was present between the head of the metacarpal and the flap of skin and this was sharply excised. Two large neuromas were identified exactly where the patient had indicated he was having pain. The proximal end of the nerve was cauterized and dropped into the palm. The skin was freed up dorsally as well. Using the mini C-arm, the foreign bodies were identified and dissected free from the surrounding tissue and passed off the field. Final x-rays confirmed this. There were no other anatomic abnormalities identified. The skin flaps were nice and loose around the metacarpal and I did not feel the need to decorticate the bone and shave it down. The axillary tourniquet was released. There was no active bleeding, just minimal oozing which was easily controlled with pressure and/or bipolar electrocautery. Thorough irrigation with a liter worth of saline was performed. The skin edges were all reapproximated using interrupted and running 4-0 nylon sutures. All the fingers became immediately soft, pink and warm, had brisk capillary refill less than 2 seconds. A bulky soft dressing was applied in the usual fashion. The patient was awakened from anesthesia and transported to the postanesthesia care unit awake and in stable condition at the end of the case. Sponge, needle and instrument counts were correct at the end of the case as reported by the nurses in the room. MD ALEXYS Mcclain/ZURI , 11:24 AM , 11:55 AM
[2017-08-06 12:35] VITALS: TEMP 97.5
[2017-08-06 13:33] VITALS: BP 125/76; PULSE 70; RESP 16; O2SAT 94
== END | disposition home or self-care (01) ==
LOC: PHSDC 08:19
PROVIDERS: ATTEND Orthopaedic Surgery Hand Surgery
DX: D36.12 Benign neoplasm of peripheral nerves and autonomic nervous system, upper limb, including shoulder (principal); S60.551S Superficial foreign body of right hand, sequela; I10 Essential (primary) hypertension; E78.5 Hyperlipidemia, unspecified; I48.91 Unspecified atrial fibrillation; Z79.01 Long term (current) use of anticoagulants; Z87.891 Personal history of nicotine dependence
CPT/HCPCS: 01810; 20525; 64782; 76000; 85025; 88304; J0131; J0690; J1100; J2250; J2370; J3010; J7120; J7613; 92950; J3301

== ENCOUNTER 2017-11-26 06:15 | Observation (INO) ==
--- NOTE | 2017-11-25 19:34 | MH ---
cc: Jordan Amaral Edward M MD Wierzbicki,Cameron Le MD, MD DATE OF ADMISSION: 11/26/2017 ADMITTING DIAGNOSIS: Lumbar spinal stenosis. HISTORY OF PRESENT ILLNESS: This is a 77-year-old male who presented to us for an evaluation of left buttock area pain radiating into the left anterior thigh to the knee for 2 years. He states he has chronic history of low back pain; however, the left thigh symptoms are what is bothering him the most. He states the back pain is on and off over a chronic period of time. He denies any paresthesias in the lower extremities. He states 4 weeks ago, he had an injection, which made his left leg go numb; however, this improved over the following 24-48 hours. He denies any right lower extremity symptoms. He has had about 4 epidural steroid injections per year, and he states they are helping, and then he had a piriformis injection, which did not help. He also has tried acupuncture, which did not help. He states if he is standing too long, his symptoms are worse. He states the left leg gives out on him and he is having to use a cane. He states he has had periods of incontinence of urine and was wearing Depends and at this point in time, he has more urgency and states that the incontinence is improved. He has done physical therapy for 3 weeks, which did not help him at all. He has a significant cardiac history and is on Coumadin for history of coronary artery disease, as well as atrial fibrillation. PAST MEDICAL HISTORY: Significant for anxiety and depression, back pain, COPD, diabetes, coronary artery disease, atrial fibrillation, hyperlipidemia, gastroesophageal reflux disease, hypertension, benign prostatic hypertrophy, amputation of the right third finger, tonsillectomy, bladder cancer in 2000, hernia repair, cervical spine surgery in 1991. CURRENT MEDICATIONS: 1. He is taking Albuterol sulfate 2.5/3 mL solution nebulized. 2. Anastrozole 1 mg. 3. Atorvastatin 40 mg. 4. Calcium 600 mg. 5. Chromium picolinate 1000 mcg. 6. Clonazepam 1 mg. 7. Clotrimazole/betamethasone 1%/0.5% cream. 8. Benazepril 10 mg. 9. Ferrous sulfate 325 mg. 10. Fish oil. This was placed on hold prior to surgical intervention. 11. Fluticasone 50 mcg nasal spray. 12. Gabapentin 300 mg. 13. Hydrocodone 7.5/325. 14. Magnesium 200 mg. 15. Multivitamin. 16. Tamsulosin 0.4 mg. 17. Trazodone 100 mg. 18. Vitamin B12. 19. Vitamin B6. 20. Coumadin 5 mg. This was placed on hold prior to surgical intervention. 21. Lovenox injections. These were placed on hold for 48 hours prior to surgical intervention. ALLERGIES: MONOSODIUM GLUTAMATE, WHICH CAUSES SEVERE CHEST PAIN AND DIFFICULTY BREATHING. FAMILY HISTORY: His mother has a history of Alzheimer's disease and heart disease. She is at age 86. Father is at age 74. SOCIAL HISTORY: He drinks 0 to 2 drinks per day of alcohol. He is a former smoker. He does not use any illicit drugs. REVIEW OF SYSTEMS: CONSTITUTIONAL: He denies any fever or chills. EARS, NOSE AND THROAT: Positive for sinus drainage,. No pharyngitis. RESPIRATORY: Positive for shortness of breath and cough. CARDIOVASCULAR: Positive for palpitations. No chest pain. GASTROINTESTINAL: Positive for diarrhea. INTEGUMENTARY: No rashes. GENITOURINARY: Positive for urinary frequency and urgency. NEUROLOGIC: No difficulty with speech. ENDOCRINE: Positive for polyuria. No polydipsia. HEMATOLOGIC: Positive for easy bruising related to his anticoagulation. PHYSICAL EXAMINATION: HEENT: Head is normocephalic, atraumatic. NECK: Supple. No carotid bruits heard on auscultation. LUNGS: Clear to auscultation bilaterally. HEART: Irregular. No murmurs. ABDOMEN: Soft, positive bowel sounds. SKIN: No cyanosis or erythema. He does have some scattered areas of ecchymosis on his forearms. MUSCULOSKELETAL: He has 5/5 strength in the lower extremities. He ambulates with a cane. NEUROLOGIC: He is awake, alert, and oriented. Cranial nerves 2-12 are grossly intact. His speech is fluent. Comprehension is good. Sensation is intact to the lower extremities to light touch. Reflexes are diminished in the lower extremities. IMPRESSION: A 76-year-old male with a chronic history of low back pain and associated neurogenic claudication symptoms with unsteadiness in his legs. He has been using a cane to ambulate, and he has had a few falls where his legs gave out on him with walking. His main complaint is left buttock and hip area pain. At times, it radiates into the anterior thigh to the knee. He has undergone physical therapy and interventional pain management without much relief. He has been using tramadol about 8 pills a day, but even this does not control his pain adequately. MRI of the lumbar spine revealed moderate L2-L3 and severe L3-L4 spinal stenosis from facet ligamentum flavum hypertrophy with mild stenosis at L4/L5. There is multilevel degenerative disk disease with disk height collapse at all the disk spaces in the lumbosacral spine. The patient is requesting that we proceed with surgical intervention. PLAN: We have discussed an L2-L4 decompressive laminectomy to address the symptoms related to the spinal stenosis. We have discussed the procedure as well as the risks, benefits, alternatives, and recovery time in great detail with the patient. We have discussed the risks involved with surgery include, but not limited to bleeding, infection, muscle weakness, voice hoarseness, difficulty swallowing, heart attack, stroke, blood clots, scar tissue formation, among others. The patient's Coumadin was held 1 week prior to surgical intervention and he was bridged with Lovenox injections, which were stopped 48 hours prior to surgical intervention. He understands given his significant cardiac history that there is risk of stroke as well as heart attack, as well as other pulmonary and organ risk. We have received clearance from his windsmith, Dr. Damon and he was scheduled as a moderate risk for cardiovascular events, which he agreed to. YANNICK Tatum MD ESP/ZURI , 06:54 PM , 07:11 PM
[2017-11-26] MEDS ORDERED: Chlorhexidine Gluconate 2% 1 Pack (2 Cloths) TOPICAL SCH (06:45)
[2017-11-26] MEDS ORDERED: Metoprolol Tartrate 25 MG Tablet PO SCH (06:45)
[2017-11-26] MEDS ORDERED: Sodium Chlor 0.9% Inj 500 ML IV.SIG SCH (07:00)
[2017-11-26] MEDS ORDERED: Sod Chloride 0.9% Inj 1,000 ML IV.SIG SCH (07:00)
[2017-11-26] MEDS ORDERED: Vancomycin Inj 1 GM/200 ML PIGGYBACK IV.SIG SCH (07:00)
[2017-11-26] MEDS ORDERED: Thrombin Topical Soln 5,000 UNIT Vial TOPICAL ONE (07:01)
[2017-11-26] MEDS ORDERED: Bupivacaine/Epinephrine 0.5% Inj 50 ML Vial ONE (07:01)
[2017-11-26] MEDS ORDERED: Gelatin Size 100 Topical Foam ONE (07:30)
[2017-11-26] MEDS ORDERED: ceFAZolin 2 GM Premix Inj 2 GM/50 ML PIGGYBACK IV.SIG ONE (08:45)
[2017-11-26] MEDS ORDERED: Glycopyrrolate Inj 1 MG/5 ML Syringe IV.PUSH ONE (12:00)
[2017-11-26] MEDS ORDERED: Neostigmine Inj 5 MG/5 ML Syringe IV.PUSH ONE (12:00)
[2017-11-26] MEDS ORDERED: Phenylephrine/NS 1000 MCG/10ML Syringe IV.PUSH ONE (12:00)
[2017-11-26] MEDS ORDERED: Lidocaine PF 1% Inj 5 ML Syringe INFILTRATN ONE (12:00)
[2017-11-26] MEDS ORDERED: fentaNYL Citrate Inj 100 MCG/2 ML Ampul ONE (12:10)
[2017-11-26] MEDS ORDERED: Menthol 5.8 MG Lozenge BUCCAL PRN (12:25)
[2017-11-26] MEDS ORDERED: Morphine Inj 4 MG/ML Vial IV.PUSH PRN (12:25)
[2017-11-26] MEDS ORDERED: Aluminum/Magnesium/Simethacone Susp 30 ML UDC PO PRN (12:25)
[2017-11-26] MEDS ORDERED: Zolpidem Tartrate 5 MG Tablet PO PRN (12:25)
[2017-11-26] MEDS ORDERED: Bisacodyl 10 MG Supp RECTAL PRN (12:25)
--- NOTE | 2017-11-26 12:32 | P.OP ---
- Preoperative Diagnosis (1) Lumbar stenosis with neurogenic claudication (2) Lumbar facet arthropathy Date of procedure: 11/26/17 Procedure: Lumbar L2, L3 and L4 decompressive laminectomies with medial facetectomy; microsurgical technique Anesthesia: SHORTY Surgeon: Dheeraj Carvalho MD Flight Attendant Ramp: Aditi Romero Estimated blood loss (mL): 100 Operation and Findings: Following administration of general endotracheal anesthesia, patient received Ancef 2 g intravenously. Sequential compression devices were placed for DVT prophylaxis and a Diaz catheter along with the invasive lines as per anesthesiology. He was then turned in prone position on Jay frame and the Ganga table and all pressure points adequately padded. The lumbar region was then shaved and prepped with a Betadine and ChloraPrep. Sterile draping undertaken with Ioban. Midline incision overlying the L2-L4 levels was then made after infiltrating the skin with 0.5% Marcaine with epinephrine solution. The skin incision was made extending down through the fascia and then using the subperiosteal plane on the left side the muscular attachments to the spinous process and lamina were detached. Intraoperative fluoroscopy was used for level confirmation and further dissection undertaken using microtechnique with microscope magnification. The inferior portion of the left L2, the left L3, and superior portion of the L4 lamina was then drilled out and the underlying ligamentum flavum also removed. There was significant facet arthropathy noted as well as severe spinal stenosis at L2-3 and L3-4 levels and the medial portion of left L2-3 and L3-4 facet was also resected and the lateral recess decompressed. Epidural venous stasis which he with the bipolar cautery along with Gelfoam and thrombin and bone wax used at the laminotomy edges for hemostasis. The thecal sac was then gently retracted and the hypertrophied ligamentum flavum and medial portion of facet of the right side L2-3 and L3-4 were also resected for circumferential spinal canal decompression from L2-L4 levels bilaterally with preservation of the interspinous and right-sided ligaments. The area was then copiously irrigated with vancomycin solution. Depo -Medrol 40 mg was also injected in the epidural space. The retractors removed and the muscle fascia proximal using 2-0 Vicryl interrupted stitches. 3-0 Vicryl subcuticular stitches were also placed in an interrupted fashion and planned skin closure was with Mastisol and Steri-Strips. A sterile dressing was then applied and the patient then turned in the supine position and extubated and taken to recovery room in stable condition. There were no intraoperative complications and all sponge and needle count was correct at the end of the procedure. Estimated blood loss about 100 cc.
--- NOTE | 2017-11-26 13:10 | XR ---
EXAM DATE: 11/26/2017 12:08 PM EDT AGE/SEX: 77 years / Male INDICATIONS: L2-L3, L3-L4 lumbar laminectomies. Level localization. CLINICAL DATA: This is the patient's initial encounter. Patient reports that signs and symptoms have been present for 1 day and indicates a pain score of Nonresponsive. MEDICAL/SURGICAL HISTORY: Non-responsive. Non-responsive. COMPARISON: No prior exams available for comparison. FINDINGS: Intraoperative radiographs demonstrate probe in place at L2 and L4. CONCLUSION: Postsurgical changes as above. Electronically signed by: Christoph Castillo MD 11/26/2017 1:08 PM EDT
[2017-11-26] MEDS: Gabapentin 300 MG Capsule PO SCH ×2 (16:59→17:06)
[2017-11-26] MEDS ORDERED: traZODone 100 MG Tablet PO SCH (21:00)
[2017-11-26] MEDS: clonazePAM 1 MG Tablet PO SCH (21:09)
[2017-11-26 21:10] VITALS: RESP 18
[2017-11-26] MEDS: Senna/Docusate Sodium 8.6/50 MG Tablet PO SCH (21:10)
[2017-11-27] MEDS: Gabapentin 300 MG Capsule PO SCH ×2 (08:20→12:03)
[2017-11-27] MEDS: clonazePAM 1 MG Tablet PO SCH (08:20)
[2017-11-27] MEDS: Senna/Docusate Sodium 8.6/50 MG Tablet PO SCH (08:22)
[2017-11-27] MEDS ORDERED: Pantoprazole Sodium 20 MG DR Tablet PO SCH (09:00)
--- NOTE | 2017-11-27 12:05 | P.DCO ---
- Physical Therapy Order: Evaluate and treat, Improve ambulation, Strength and gait training Instructions: Walker - Certification I have seen patient Yohannes Varma on 11/27/17. My clinical findings support the need for the requested home health care services because: Deconditioned with increased weakness I certify that my clinical findings support that this patient is homebound because: Post-op weakness
--- NOTE | 2017-11-27 13:23 | P.PNNS ---
Subjective Interval history: 77-year-old gentleman who is postop day #1 status post L2-4 decompressive laminectomy. He is ambulating with a walker and relates his lower extremity symptoms have improved with complains of incisional pain. He is voiding and tolerating regular diet. Physical Exam Vital signs: Vital Signs 11/26/17 13:30 11/26/17 16:00 11/26/17 20:00 Temperature 97.6 F 97.0 F L 98.2 F Pulse Rate 82 73 91 H Respiratory Rate 16 17 18 Blood Pressure 114/76 127/83 115/69 Pulse Oximetry 96 96 94 L 11/26/17 21:08 11/26/17 21:38 11/27/17 00:00 Temperature 97.9 F Pulse Rate 79 Respiratory Rate 18 18 18 Blood Pressure 123/79 Pulse Oximetry 93 L 11/27/17 01:43 11/27/17 02:43 11/27/17 04:00 Temperature 98.3 F Pulse Rate 64 Respiratory Rate 18 18 18 Blood Pressure 117/76 Pulse Oximetry 93 L 11/27/17 08:00 11/27/17 08:20 11/27/17 12:03 Temperature 98.1 F Pulse Rate 87 Respiratory Rate 18 18 18 Blood Pressure 120/82 Pulse Oximetry 91 L Intake & Output 11/26/17 11/27/17 11/27/17 18:59 06:59 18:59 Intake Total 2900 / 2900 100 / 100 Output Total 350 / 350 1075 / 1075 Balance 2550 / 2550 -975 / -975 Weight 74.5 kg 74.5 kg Intake: IV 100 / 100 100 / 100 Ancef Inj 1,000 MG In NS Inj 100 / 100 100 / 100 100 ML @ 200 mls/hr IV[facility] Q[facility] Rx#:[id number] Oral 800 / 800 Anesthesia Amount 1999 / 1999 Output: Urine 300 / 300 1075 / 1075 Estimated Blood Loss 50 / 50 Other: # Voids 6 Date of Last Bowel Movement 11/25/17 Weight On Admission 74.5 kg - Constitutional no acute distress - Routine HEENT Exam Head: Present: normocephalic, atraumatic Eye: Present: EOMI, PERRL ENT: Present: mucous membranes moist, oropharynx clear - Routine Neck Exam Present: supple, full ROM - Routine Respiratory Exam Present: CTA bilaterally - Routine Cardiovascular Exam Present: RRR, S1, S2 - Routine Abdominal Exam Present: soft, normoactive bowel sounds - Routine Extremities Exam Present: full ROM, pulses intact - Routine Skin Exam Present: intact - Routine Neurological Exam Present: oriented X3, CN II-XII intact, moving all extremities, normal speech - Routine Psychiatric Exam Present: normal affect - Urinary Catheter Management Indwelling Urethral Catheter Cath placed during this visit: no Assessment and Plan - Assessment (1) Lumbar stenosis with neurogenic claudication Code(s): M48.062 - Spinal stenosis, lumbar region with neurogenic claudication Status: Acute (2) Lumbar facet arthropathy Code(s): M46.96 - Unspecified inflammatory spondylopathy, lumbar region Status : Acute - Plan 77-year-old gentleman postop day #1 status post L2-4 decompressive laminectomy. He is doing well with the incisional pain control with medications and is ambulating and voiding. Plan discharge home with home physical therapy. Discussed restrictions and wound care. Follow-up in clinic as scheduled.
[2017-11-30] MEDS ORDERED: Anastrozole 1 MG Tablet PO SCH (12:22)
[2017-12-01 18:15] VITALS: BP 118/65; PULSE 53; TEMP 97.5; O2SAT 95
== END 2017-11-27 16:12 | disposition home health service (06) ==
LOC: HSDC 06:15 → HSDI 06:15 → N06 06:15
PROVIDERS: ADMIT Neurological Surgery; ATTEND Neurological Surgery